=== PATIENT | male | born 1950 | race Caucasian/White ===

== ENCOUNTER 2018-04-08 06:58 | Outpatient (CLI) | payer OTHER, MEDICARE ==
[2018-04-08] MEDS ORDERED: methylPREDNISolone ACETATE 80 MG/ML ONE (07:34)
[2018-04-08] MEDS ORDERED: LIDOCAINE 1%, 20 ML MDV 20 ML ONE (07:35)
[2018-04-08] MEDS ORDERED: BUPIVACAINE /PF 0.25% 30 ML VIAL INJ ONE (07:35)
[2018-04-08] MEDS ORDERED: IOHEXOL 50 ML IV ONE (07:35)
== END 2018-04-08 20:38 | disposition home or self-care (01) ==
LOC: SRD 06:58
PROVIDERS: ATTEND Orthopaedic Surgery
DX: M24.851 Other specific joint derangements of right hip, not elsewhere classified (principal)
CPT/HCPCS: 27095; 73525; J1040; J2001; Q9967; J3490